=== PATIENT | female | born 1960 | race Caucasian/White ===

== ENCOUNTER 2016-12-29 05:43 | Day surgery (SDC) | payer BC, OTHER ==
[2016-12-29] MEDS ORDERED: Lactated Ringers 1,000 ML IV ONE ×2 (06:23→07:35)
[2016-12-29] MEDS ORDERED: Lactated Ringers 1,000 ML IV SCH (06:30)
[2016-12-29] MEDS ORDERED: Zofran 4 MG/2 ML VIAL IV ONE (09:07)
[2016-12-29 09:48] VITALS: PULSE 59
[2016-12-29 10:21] VITALS: BP 125/68; O2SAT 98
[2016-12-29] MEDS ORDERED: DIPRIVAN 200 MG/20 ML IV ONE (12:00)
[2016-12-29] MEDS ORDERED: Ketamine HCl 50 MG/ML IV ONE (12:00)
--- NOTE | 2016-12-29 12:03 | OP ---
SURGERY DATE/TIME: 12/29/2016 0700 PREOPERATIVE DIAGNOSIS: Screening colonoscopy. POSTOPERATIVE DIAGNOSIS: Cecal polyp x1. PROCEDURE: Colonoscopy. SURGEON: Dr. Hernandez. ANESTHESIA: MAC by Aleksandr Martin CRNA. ESTIMATED BLOOD LOSS: Minimal. SPECIMENS: One hot forceps polypectomy from cecum. DESCRIPTION OF PROCEDURE: After informed written consent was obtained, the patient was taken to the endoscopy suite. She underwent monitored anesthesia and digital rectal exam showed normal sphincter tone and mild external hemorrhoids. The scope was then inserted in the rectum and sequentially the entire colonic mucosa was traversed. The level of cecum was reached and verified with direct visualization of ileocecal valve. There was a small sessile polyp present in the pericecal area which was grasped with forceps and cauterized and then completely removed. The area was hemostatic and the entire lesion was adequately removed. Upon withdrawal careful mucosal inspection revealed no other gross abnormalities. Prior to withdrawal retroflexion was performed which showed no internal lesions. The scope was removed and the patient was transferred to the recovery room in excellent condition. She will follow up in one week for pathology results.
== END 2016-12-29 10:30 | disposition home or self-care (01) ==
LOC: SDC 05:43
PROVIDERS: ATTEND Family Medicine
PROC: 0DBH8ZX Excision of Cecum, Via Natural or Artificial Opening Endoscopic, Diagnostic (ICD-10-PCS; principal; 2016-12-29)
DX: D12.0 Benign neoplasm of cecum (principal); Z12.11 Encounter for screening for malignant neoplasm of colon; I10 Essential (primary) hypertension
CPT/HCPCS: 00810; 36415; 88305; J2405; J2704

== ENCOUNTER → 2021-06-10 | Emergency (ER) | payer BC | END | disposition left against medical advice (07) | LOC: ED 03:36 | DX: Z53.21 Procedure and treatment not carried out due to patient leaving prior to being seen by health care provider (principal) ==